=== PATIENT | female | born 1955 | race Caucasian/White ===

== ENCOUNTER 2018-02-09 19:13 | Inpatient (IN) | payer BC ==
[2018-02-09] MEDS ORDERED: ONDANSETRON HCL/PF 2 MG/ML VIAL IV ONE ×2 (19:39→22:40)
[2018-02-09] MEDS ORDERED: MORPHINE SULFATE 4 MG/ML SYRG IV ONE ×2 (19:40→22:40)
--- NOTE | 2018-02-09 19:46 | ERNOTE ---
<Randolph Cox - Last Filed: 02/09/18 19:40> Abdominal HPI - Narrative Date of Service: 02/09/18 - General Chief Complaint: Abdominal Pain Time Seen by Provider: 02/09/18 19:39 Source: patient, family Exam Limitations: no limitations - Immun/Allergies/Home Medications Immunizatons: IMMUNIZATION HX Immunizations Up to Date Yes History of Influenza Vaccine Yes Hx Pneumococcal Vaccination No Allergies/Adverse Reactions: Allergies No Known Allergies Allergy (Unverified 02/23/14 17:03) Home Medications: HOME MEDICATIONS metFORMIN HCL [Glucophage Xr] 1,000 mg PO BID 02/23/14 [Last Taken Unknown] Atorvastatin Calcium [Lipitor] 10 mg PO DAILY #0 tablet 03/01/14 [Last Taken Unknown] Lisinopril/Hydrochlorothiazide [Lisinopril-Hctz 20-25 mg Tab] 1 each PO DAILY # 0 tablet 03/01/14 [Last Taken Unknown] Multivitamin [Fzb-Rmknyj-Sonbf] 1 each PO DAILY #0 tablet 03/01/14 [Last Taken Unknown] Canagliflozin [Invokana] 100 mg PO DAILY 02/09/18 [Last Taken Unknown] Chlorthalidone [Hygroton] 25 mg PO DAILY 02/09/18 [Last Taken Unknown] Glimepiride [Glimepiride (Amaryl)] 8 mg PO DAILY 02/09/18 [Last Taken Unknown] Levothyroxine Sodium [Synthroid] 100 mcg PO DAILY 02/09/18 [Last Taken Unknown] Sitagliptin Phos/Metformin HCl [Janumet 50-1,000 mg Tablet] 1 each PO BID [Last Taken Unknown] - History of Present Illness Narrative: onset of abdominal pain at about noon today, symptoms similair to small bowel obstruction she has had in past Timing: constant, getting worse Quality: moderate, fullness, sharpness, stabbing Activities at Onset: none Modifying Factors - (Improves): Present: vomiting Modifying Factors - (Worsens): Present: eating Associated Symptoms: Present: nausea, vomiting, loss of appetite Prior Abdominal Problems: Present: similar symptoms Review of Systems - Narrative Narrative: unremarkable - Review of Systems Constitutional: Present: See HPI EYE: Present: see HPI ENT: Present: See HPI Respiratory: Present: See HPI Cardiology: Present: See HPI Gastrointestinal/Abdominal: Present: See HPI, nausea, vomiting, abdominal pain Genitourinary: Present: no symptoms reported Musculoskeletal: Present: no symptoms reported Skin: Present: no symptoms reported Neurological: Present: no symptoms reported, See HPI Endocrine: Present: no symptoms reported Hematologic/Lymphatic: Present: no symptoms reported Psych: Present: no symptoms reported All Other Systems: All systems neg except as marked - Narrative Narrative: unremarkable - Patient's Past Medical History Patient History - Medical: Diabetes Type 2, Other Patient History - Cardiac/Respiratory: Hypertension, Hyperlipidemia Patient History - Cancer: Thyroid Patient History - Surgical Procedures: Hysterectomy Patient History - Other: None LMP (females 10-50): Menopausal - Family History Family History:: no untoward family reactions to anesthesia, no familial bleeding tendencies, no family history of clotting disorders, no family history of premature - Social History Living Situations: spouse Abuse History: No History of abuse Psych History: No pertinent hx Smoking Status: Never smoker Have you smoked in the past 12 months: No Do you dip or chew tobacco: No Patient requests Smoking Cessation Consult: No Initiate information on Smoking Cessation: No Alcohol Use: occasionally Drug Use: none - Immunizations Immunizations Up to Date: Yes Hx Pneumococcal Vaccination: No History of Influenza Vaccine: Yes Physical Exam - Physical Exam General Appearance: Present: moderate distress Head Exam: Present: normal inspection, no evidence of injury Eye Exam: Normal inspection: bilateral, PERRL: bilateral, EOMI: bilateral Ears, Nose, Throat: Present: normal ENT inspection Neck: Present: normal inspection, nontender Respiratory: Present: no respiratory distress, normal breath sounds, no accessory muscle use, chest nontender, lungs clear Peripheral Pulses: N=norm/S=strong/W=weak/B=bound/A=absent: Carotid (R): Normal , Carotid (L): Normal, Radial (R): Normal, Radial (L): Normal, Femoral (R): Normal, Femoral (L): Normal, Dorsalis-pedis (R): Normal, Dorsalis-pedis (L): Normal Gastrointestinal/Abdominal: Present: tenderness, abnormal bowel sounds, distended, guarding Back Exam: Present: normal inspection, normal range of motion, no CVA tenderness , no vertebral tenderness Extremity Exam: Present: normal inspection Neurological Exam: Present: alert, oriented, normal mood/affect, no motor/ sensory deficits Skin Exam: Present: normal color, warm/dry Lymphatic Exam: Present: no adenopathy ED Progress - Vital Signs Vital Signs: Vital Signs 02/09/18 19:16 Temperature 36.3 C L Pulse Rate 64 Respiratory 16 Rate Blood Pressure 145/61 O2 Sat by Pulse 96 Oximetry - Progress/Reassessment Chief Complaint: Abdominal Pain - Transfer of Care Physician Sign Out: Randolph Cox Receiving Physician: Salomon Bonilla Departure Clinical Impression: Small bowel obstruction - Departure Disposition: Still a patient Condition: Fair <Salomon Bonilla - Last Filed: 02/10/18 02:10> Abdominal HPI - Immun/Allergies/Home Medications Immunizatons: IMMUNIZATION HX Immunizations Up to Date Yes History of Influenza Vaccine Yes Hx Pneumococcal Vaccination No ED Progress - Results and Orders Patient's Lab Results:: I have reviewed the patient's lab results. Results and Orders: Laboratory Tests 02/09/18 02/09/18 02/09/18 19:51 19:51 20:51 WBC 13.6 H Hgb 13.1 Hct 38.0 Plt Count 282 Sodium 140 Potassium 4.3 Chloride 102 Carbon Dioxide 26.6 Anion Gap 15.7 H BUN 28 H Creatinine 1.10 BUN/Creatinine Ratio 25.5 H Random Glucose 219 H Calcium 9.8 Total Bilirubin 0.5 AST 17 ALT 35 Alkaline Phosphatase 100 Total Protein 8.2 Albumin 4.2 Amylase 41 Lipase 134 Urine Color Yellow Urine Appearance Slightly cloudy Urine pH 5.5 Ur Specific [place] 1.025 Urine Protein Negative Urine Glucose (UA) >=1000 H Urine Ketones Negative Urine Blood Negative Urine Nitrate Negative Urine Bilirubin Negative Urine Urobilinogen Normal Ur Leukocyte Esterase Negative Urine RBC None seen Urine WBC 0-5 Ur Epithelial Cells 0-5 Urine Bacteria 1+ H Urine Yeast Moderate - 2+ H Urine Culture Comments No culture indicated - Vital Signs Patient's Vital Signs:: I have reviewed the patient's vital signs. Vital Signs: Vital Signs 02/09/18 19:16 Temperature 36.3 C L Pulse Rate 64 Respiratory 16 Rate Blood Pressure 145/61 O2 Sat by Pulse 96 Oximetry - CT/Ultrasound CT/Ultrasound Narrative: CT - Progress/Reassessment Progress Note-Subjective: 02/10/18 00:[address] Barnhart- General surgery and he agrees to see the patient in the morning, requests admission to medicine and consult him. Spoke with Vishaun Timmy [employer] hospitalist, she agrees with admit. - Transfer of Care Pending Results: CT/MRI results, Labs
[2018-02-09] MEDS ORDERED: MORPHINE SULFATE 4 MG/ML SYRG ONE ×2 (19:47→22:40)
[2018-02-09] MEDS ORDERED: ONDANSETRON HCL/PF 2 MG/ML VIAL ONE ×2 (19:47→22:40)
[2018-02-09 19:56] LABS: Hemoglobin 13.1 gm/dL (12.5-16.0); Mean Cell Volume 86.4 fl (78-100); Mean Corpuscular Hemoglobin 29.8 pg (27-31); Mean Corpuscular Hgb Conc 34.5 g/dl (32-36); Mean Platelet Volume 10.9 fl (6.0-9.5); Neutrophil # 9.6 K/mm3 (1.3-6.0); Neutrophil % 71.1 % (42-75.0); Platelet Count 282 K/mm3 (150-450); Red Cell Distribution Width 13.4 % (11.5-14.0); White Blood Count 13.6 K/mm3 (4.0-10.5)
[2018-02-09] MEDS: NORMAL SALINE 1,000 ML IV PRN (20:09)
[2018-02-09 20:10] LABS: Albumin * 4.2 gm/dl (3.4-5.0); Anion Gap 15.7 mmol/L (6.8-13.8); BUN/Creatinine Ratio 25.5 (9.0-21.6); Bilirubin, Total 0.5 mg/dL (0.0-1.1); Ca. Corrected For Albumin 9.3 mg/dL (8.4-10.2); Calcium * 9.8 mg/dL (7.9-10.9); Carbon Dioxide 26.6 mmol/L (24-32.6); Potassium 4.3 mmol/L (3.4-4.6); Total Protein 8.2 gm/dL (6.2-8.2)
[2018-02-09 20:57] LABS: Urine Bilirubin Negative (NEGATIVE); Urine Blood Negative /ul (NEGATIVE); Urine Ketone Negative (NEGATIVE); Urine Nitrite Negative (NEGATIVE); Urine Protein Negative (NEGATIVE); Urine Specific Gravity 1.025 SP.GR. (1.005-1.010); Urine Urobilinogen Normal (NORMAL); Urine pH 5.5 pH (5.0-7.0)
[2018-02-09 21:06] LABS: Urine Appearance Slightly Cloudy (CLEAR); Urine Color Yellow; Urine RBC None Seen /hpf (0-5); Urine WBC 0-5 /hpf (0-5)
[2018-02-09 21:07] LABS: Urine Bacteria 1+; Urine Yeast Moderate - 2+
[2018-02-09] MEDS ORDERED: DIATRIZOATE MEGLUMINE, SODIUM 30 ML BTL ONE (21:22)
[2018-02-09] MEDS ORDERED: DIATRIZOATE MEGLUMINE, SODIUM 30 ML BTL PO ONE (21:36)
[2018-02-10] MEDS ORDERED: TETRACAINE/BENZOCAINE/BUTAMBEN 20 SPRAY BTL TP ONE (01:29)
[2018-02-10] MEDS ORDERED: BENZOCAINE/MENTHOL 16 EACH BOX MM ONE (02:16)
[2018-02-10] MEDS ORDERED: BENZOCAINE/MENTHOL 16 EACH BOX MM PRN (02:19)
[2018-02-10] MEDS ORDERED: ONDANSETRON HCL/PF 2 MG/ML VIAL IV PRN (02:19)
[2018-02-10] MEDS ORDERED: MORPHINE SULFATE 2 MG/ML DISP.SYRIN IV PRN (02:19)
[2018-02-10] MEDS ORDERED: PANTOPRAZOLE SODIUM 40 MG in NORMAL SALINE 100 ML IV SCH (02:30)
[2018-02-10] MEDS: NORMAL SALINE 1,000 ML IV PRN (02:37)
--- NOTE | 2018-02-10 02:42 | HP ---
Chief Complaint - Chief Complaint Date of Service: 02/10/18 Time of Service: 01:39 Chief Complaint: abdominal pain, nausea and vomiting. History of Present Illness: 63 years old white female adm to the hospital with reports of nausea and intermittent abdominal pain that began approximately 11am yesterday. The abdominal pain was mainly around belt waistline, she had no appetite, passing flatus, one episode emesis while in ER and denies bowel movement. pt stated the s/s felt similar to bowel obstruction. She was diagnosed SBO 10yrs ago, that ultimately resulted in colon resection. PMH significant for diabetes, hypertension, sleep apnea and hypothyroidism. In ER Preliminary report X-Ray ABD : Dilation of small bowel loop measuring up to 3cm with scattered air fluid levels which is suggestive of partial small bowel obstruction vs ileus. CT ABD: Fatty liver infiltrate, gallbladder diffusely distended. Acute small bowel obstruction with distal transition point. No evidence for perforation. NGT inserted at Low intermittent suctioning. Plan of care discussed with pt and family they verbalized understanding and agrees. - Patient's Past Medical History Patient History - Medical: Diabetes Type 2, Hypothyroidism, Other - small bowel obstruction 10yrs ago Patient History - Cardiac/Respiratory: Hypertension, Hyperlipidemia, CPAP/BiPAP Home Use, Sleep Apnea, Other - morbid obesity Patient History - Cancer: Thyroid Patient History - Surgical Procedures: Colon Resection, Colonoscopy, Hysterectomy, Other - Tuba ligation,ventral hernia repair,umbilical hernia repair, hemithyroidectomy Patient History - Other: None LMP (females 10-50): Menopausal - Family History Family History:: no untoward family reactions to anesthesia, no familial bleeding tendencies, no family history of clotting disorders, no family history of premature - Family History Mother Family History - Medical: Family History - Cardiac/Respiratory: CVA/Stroke Father Family History - Medical: Family History - Cancer: Colon Brother Family History - Cardiac/Respiratory: CVA/Stroke Family History - Cancer: Bladder, Thyroid Sister Family History - Cancer: Bladder, Thyroid - Social History Living Situations: spouse Abuse History: No History of abuse Psych History: No pertinent hx Smoking Status: Never smoker Have you smoked in the past 12 months: No Do you dip or chew tobacco: No Patient requests Smoking Cessation Consult: No Initiate information on Smoking Cessation: No Alcohol Use: occasionally Drug Use: none - Immunizations Immunizations Up to Date: Yes Hx Pneumococcal Vaccination: No History of Influenza Vaccine: Yes Review Of Systems (GEN) - Review of Systems Generalized/Overall Review: Present: No Symptoms Reported EENTM: Present: No Symptoms Reported Respiratory: Present: No Symptoms Reported Cardiac: Present: No Symptoms Reported Abdominal: Present: Nausea, Vomiting, Abdominal Pain Genitourinary: Present: No Symptoms Reported Musculoskeletal: Present: No Symptoms Reported Neurological: Present: No Symptoms Reported Skin: Present: Dryness, Other - diabetic rash Allergies/Adverse Reactions: Allergies Allergy/AdvReac Type Severity Reaction Status Date / Time No Known Allergies Allergy Unverified 02/23/14 17:03 Home Medications: HOME MEDICATIONS Lisinopril/Hydrochlorothiazide [Lisinopril-Hctz 20-25 mg Tab] 1 each PO DAILY # 0 tablet 03/01/14 [Last Taken Unknown] Multivitamin [Fiz-Iscrxj-Ahgrw] 1 each PO DAILY #0 tablet 03/01/14 [Last Taken Unknown] Canagliflozin [Invokana] 100 mg PO DAILY 02/09/18 [Last Taken Unknown] Chlorthalidone [Hygroton] 25 mg PO DAILY 02/09/18 [Last Taken Unknown] Glimepiride [Glimepiride (Amaryl)] 8 mg PO DAILY 02/09/18 [Last Taken Unknown] Levothyroxine Sodium [Synthroid] 100 mcg PO DAILY 02/09/18 [Last Taken Unknown] Sitagliptin Phos/Metformin HCl [Janumet 50-1,000 mg Tablet] 1 each PO BID [Last Taken Unknown] Atorvastatin Calcium [Lipitor] 20 mg PO DAILY 02/10/18 [Last Taken Unknown] Cholecalciferol [Vitamin D] 5,000 unit PO DAILY 02/10/18 [Last Taken Unknown] Exam - Exam Vital Signs: Vital Signs - Last Taken Temp 36.3 C L 02/09/18 19:16 Pulse 72 02/10/18 00:58 Resp 20 02/10/18 00:58 BP 123/57 02/10/18 00:58 Pulse Ox 98 02/10/18 00:58 Constitutional: Present: Alert, Oriented x3, Cooperative, Morbidly obese ENT Exam: Present: hearing grossly normal Eye Exam: bilateral eye: normal inspection Neck: Present: full range of motion Back Exam: Present: normal inspection Breasts: Present: Exam deferred Respiratory: Present: chest non-tender, lungs clear, normal breath sounds, no respiratory distress Cardiovascular/Chest: Present: normal peripheral pulses, regular rate, rhythm, no chest tenderness, no edema Peripheral Pulses: dorsalis-pedis (R): 2+, dorsalis-pedis (L): 2+ Abdomen: Present: soft, no rebound tenderness, obese, distended, hypoactive Extremity: Present: normal range of motion, non-tender, normal inspection, no pedal edema, no calf tenderness Skin Exam: Present: skin rash - diabetic dermopathy on bilateral pretibial area Lymphatic: Present: no adenopathy Neurologic: Present: alert, normal mood/affect, oriented x 3 Appearance: Present: appropriate appearance, appropriate insight Eye contact: Present: cooperative, good eye contact Thoughts: Present: normal thought pattern, no apparent hallucination Diagnostic Studies: Laboratory Results WBC 13.6 K/mm3 (4.0-10.5) H 02/09/18 19:51 RBC 4.40 M/mm3 (4.2-5.4) 02/09/18 19:51 Hgb 13.1 gm/dL (12.5-16.0) 02/09/18 19:51 Hct 38.0 % (37.0-47.0) 02/09/18 19:51 MCV 86.4 fl (78-100) 02/09/18 19:51 MCH 29.8 pg (27-31) 02/09/18 19:51 MCHC 34.5 g/dl (32-36) 02/09/18 19:51 RDW 13.4 % (11.5-14.0) 02/09/18 19:51 Plt Count 282 K/mm3 (150-450) 02/09/18 19:51 MPV 10.9 fl (6.0-9.5) H 02/09/18 19:51 Immature Gran % (Auto) 0.90 % (0.001-0.429) H 02/09/18 19:51 Immature Gran # (Auto) 0.12 K/mm3 (0.000-0.0310) H 02/09/18 19:51 Neutrophils % 71.1 % (42-75.0) 02/09/18 19:51 Lymphocytes % 22.4 % (20-51) 02/09/18 19:51 Monocytes % 4.1 % (0.0-9) 02/09/18 19:51 Eosinophils % 1.0 % (0.0-3.0) 02/09/18 19:51 Basophils % 0.5 % (0.0-1.0) 02/09/18 19:51 Nucleated RBC % 0.0 k/mm3 (0-1) 02/09/18 19:51 Neutrophils # 9.6 K/mm3 (1.3-6.0) H 02/09/18 19:51 Lymphocytes # 3.04 k/mm3 (1.5-3.5) 02/09/18 19:51 Monocytes # 0.6 k/mm3 (0.0-1.0) 02/09/18 19:51 Eosinophils # 0.1 k/mm3 (0.0-0.7) 02/09/18 19:51 Absolute Basophils 0.1 k/mm3 (0.0-0.1) 02/09/18 19:51 Sodium 140 mmol/L (132-142) 02/09/18 19:51 Plasma Sodium 142 mmol/L (130-142) 02/09/18 19:51 Potassium 4.3 mmol/L (3.4-4.6) 02/09/18 19:51 Chloride 102 mmol/L (97-106) 02/09/18 19:51 Carbon Dioxide 26.6 mmol/L (24-32.6) 02/09/18 19:51 Anion Gap 15.7 mmol/L (6.8-13.8) H 02/09/18 19:51 BUN 28 mg/dL (3-23) H 02/09/18 19:51 Creatinine 1.10 mg/dL (0.4-1.4) 02/09/18 19:51 Est GFR (Non-Af Amer) 53 mL/min (60-130) L 02/09/18 19:51 BUN/Creatinine Ratio 25.5 (9.0-21.6) H 02/09/18 19:51 Random Glucose 219 mg/dL (70-110) H 02/09/18 19:51 Calcium 9.8 mg/dL (7.9-10.9) 02/09/18 19:51 Calcium Adj for Albumin 9.3 mg/dL (8.4-10.2) 02/09/18 19:51 Total Bilirubin 0.5 mg/dL (0.0-1.1) 02/09/18 19:51 AST 17 U/L (0-48) 02/09/18 19:51 ALT 35 U/L (19-67) 02/09/18 19:51 Alkaline Phosphatase 100 U/L (50-170) 02/09/18 19:51 Total Protein 8.2 gm/dL (6.2-8.2) 02/09/18 19:51 Albumin 4.2 gm/dl (3.4-5.0) 02/09/18 19:51 Amylase 41 U/L (25-115) 02/09/18 19:51 Lipase 134 U/L (73-393) 02/09/18 19:51 Urine Color Yellow 02/09/18 20:51 Urine Appearance Slightly cloudy (CLEAR) 02/09/18 20:51 Urine pH 5.5 pH (5.0-7.0) 02/09/18 20:51 Ur Specific [place] 1.025 SP.GR. (1.005-1.010) 02/09/18 20:51 Urine Protein Negative mg/dL (NEGATIVE) 02/09/18 20:51 Urine Glucose (UA) >=1000 mg/dL (NEGATIVE) H 02/09/18 20:51 Urine Ketones Negative mg/dL (NEGATIVE) 02/09/18 20:51 Urine Blood Negative /ul (NEGATIVE) 02/09/18 20:51 Urine Nitrate Negative (NEGATIVE) 02/09/18 20:51 Urine Bilirubin Negative mg/dl (NEGATIVE) 02/09/18 20:51 Urine Urobilinogen Normal EU/dl (NORMAL) 02/09/18 20:51 Ur Leukocyte Esterase Negative /ul (NEGATIVE) 02/09/18 20:51 Urine RBC None seen /hpf (0-5) 02/09/18 20:51 Urine WBC 0-5 /hpf (0-5) 02/09/18 20:51 Ur Epithelial Cells 0-5 /hpf (0-5) 02/09/18 20:51 Urine Bacteria 1+ (NONE) H 02/09/18 20:51 Urine Yeast Moderate - 2+ (NONE) H 02/09/18 20:51 Urine Culture Comments No culture indicated 02/09/18 20:51 Preliminary report X-Ray ABD: Dilation of small bowel loop measuring up to 3cm with scattered air fluid levels which is suggestive of partial small bowel obstruction vs ileus. CT ABD: Fatty liver infiltrate, gallbladder diffusely distended. Acute small bowel obstruction with distal transition point. No evidence for perforation. Assessment/Plan - Narrative Narrative: Small bowel obstruction Seen On X-ray ABD:Preliminary report X-Ray ABD:Dilation of small bowel loop measuring up to 3cm with scattered air fluid levels which is suggestive of partial small bowel obstruction vs ileus. CT ABD: Fatty liver infiltrate, gallbladder diffusely distended. Acute small bowel obstruction with distal transition point. No evidence for perforation. CXR pending reports Keep NPO, with NGT low intermittent suction Dextrose 5 0.9 20meq LCK 125ml/hr Protonix IVP Dr Mercer consulted Sleep apnea pt refuses cpap while NGT in use Hypertension- stable continue to monitor vital signs Diabetes On adm BG 219 Hold oral hypoglycemic med, pt had CT with contrast Accu-check and continue with IVF Code status: Full GI ppx: protonix VTE ppx: SCD and ambulate Time 40 minutes and case discussed with pt and - Assessment/Plan (1) Small bowel obstruction Problem: Acute (2) Diabetes Problem: Acute (3) Hyperlipidemia Problem: Chronic (4) Hypothyroidism Problem: Chronic (5) Sleep apnea Problem: Chronic (6) Morbid obesity Problem: Chronic
[2018-02-10] MEDS ORDERED: POTASSIUM CHLORIDE 20 MEQ in DEXTROSE 5%-NORMAL SALINE 990 ML IV SCH (03:00)
[2018-02-10 06:40] LABS: Albumin * 3.2 gm/dl (3.4-5.0); Anion Gap 14.4 mmol/L (6.8-13.8); BUN/Creatinine Ratio 23.5 (9.0-21.6); Bilirubin, Total 0.5 mg/dL (0.0-1.1); Ca. Corrected For Albumin 8.4 mg/dL (8.4-10.2); Calcium * 8.1 mg/dL (7.9-10.9); Carbon Dioxide 24.3 mmol/L (24-32.6); Potassium 4.7 mmol/L (3.4-4.6); Total Protein 6.6 gm/dL (6.2-8.2)
[2018-02-10] MEDS: DEXTROSE 5%-NORMAL SALINE 1,000 ML IV PRN ×3 (10:07→23:39)
[2018-02-10] MEDS: INSULIN LISPRO 100 UNITS/ML VIAL SC SCH ×3 (10:44→22:01)
--- NOTE | 2018-02-10 13:02 | CONS ---
[facility] - General Date of Service: 02/10/18 Narrative: Pt was admitted in the night with a partial small bowel obstruction. This has happened before and resolved by conservative means under the care of Dr. Falk. She has a significant surgical history of the abdomen. CT has shown a transition point in the RLQ in the iliac fossa near the iliac artery. It also shows recurrent ventral hernias of the upper abdomen despite having mesh implantation from flank to flank. Today she is passing flatus. No BM. Her pain is now gone. Source: patient, RN/MD, old records Exam Limitations: no limitations - History of Present Illness Allergies/Adverse Reactions: Allergies No Known Allergies Allergy (Verified 02/10/18 11:23) Home Medications: Home Medications Medication Instructions Recorded Last Taken Canagliflozin [Invokana] 100 mg PO DAILY 02/09/18 Unknown Chlorthalidone [Hygroton] 25 mg PO DAILY 02/09/18 Unknown Glimepiride [Glimepiride (Amaryl)] 8 mg PO DAILY 02/09/18 Unknown Levothyroxine Sodium [Synthroid] 100 mcg PO DAILY 02/09/18 Unknown Sitagliptin Phos/Metformin HCl 1 each PO BID 02/09/18 Unknown [Janumet 50-1,000 mg Tablet] Atorvastatin Calcium [Lipitor] 20 mg PO DAILY 02/10/18 Unknown Cholecalciferol [Vitamin D] 5,000 unit PO DAILY 02/10/18 Unknown - Patient's Past Medical History Patient History - Medical: Diabetes Type 2, Hypothyroidism, Other - small bowel obstruction 10yrs ago Patient History - Cardiac/Respiratory: Hypertension, Hyperlipidemia, CPAP/BiPAP Home Use, Sleep Apnea, Other - morbid obesity Patient History - Cancer: Thyroid Patient History - Surgical Procedures: Colon Resection, Colonoscopy, Hysterectomy, Other - Tuba ligation,ventral hernia repair,umbilical hernia repair, hemithyroidectomy Patient History - Other: None LMP (females 10-50): Menopausal - Family History Family History:: no untoward family reactions to anesthesia, no familial bleeding tendencies, no family history of clotting disorders, no family history of premature - Family History Mother Family History - Medical: Family History - Cardiac/Respiratory: CVA/Stroke Father Family History - Medical: Family History - Cancer: Colon Brother Family History - Cardiac/Respiratory: CVA/Stroke Family History - Cancer: Bladder, Thyroid Sister Family History - Cancer: Bladder, Thyroid - Social History Living Situations: spouse Abuse History: No History of abuse Psych History: No pertinent hx Smoking Status: Never smoker Have you smoked in the past 12 months: No Do you dip or chew tobacco: No Patient requests Smoking Cessation Consult: No Initiate information on Smoking Cessation: No Alcohol Use: occasionally Drug Use: none - Immunizations Immunizations Up to Date: Yes Hx Pneumococcal Vaccination: No History of Influenza Vaccine: Yes Procedures COLONOSCOPY (03/01/14) Medications - Medications Current Medications: Current Medications Dextrose/Sodium Chloride (Dextrose 5%-0.9% Ns) 1,000 mls @ 150 mls/hr IV .Q6H40M PRN PRN Reason: HYDRATION Stop: 03/12/18 09:46 Last Admin: 02/10/18 10:07 Dose: 150 mls/hr Insulin Human Lispro (Humalog) 0 - 12 units SC Q6H KAREN PRN Reason: Protocol Stop: 03/12/18 10:01 Last Admin: 02/10/18 10:44 Dose: Not Given Morphine Sulfate (Morphine Sulfate) 2 mg IV Q6H PRN PRN Reason: Pain Stop: 03/12/18 02:20 Last Admin: 02/10/18 02:38 Dose: 2 mg Ondansetron HCl (Zofran) 4 mg IV Q6H PRN PRN Reason: Nausea And Vomiting Stop: 03/12/18 02:20 Last Admin: 02/10/18 02:38 Dose: 4 mg Review of Systems - Review of Systems Abdominal: Present: Vomiting, Abdominal Pain Misc: All systems neg except as marked Physical Examination - Exam Vital Signs: Vital Signs - Last Taken Temp 36.4 C L 02/10/18 10:30 Pulse 61 02/10/18 10:30 Resp 16 02/10/18 10:30 BP 109/55 02/10/18 10:30 Pulse Ox 98 02/10/18 10:30 O2 Oxygen Delivery Method Room Air Constitutional: Present: Alert, Oriented x3, Cooperative, Well developed, Well nourished, No distress, Morbidly obese ENT Exam: Present: normal ENT inspection, other - NG in place with bilious succus entericus Eye Exam: bilateral eye: normal inspection Neck: Present: normal inspection Respiratory: Present: normal breath sounds, no respiratory distress, no accessory muscle use Cardiovascular/Chest: Present: regular rate, rhythm, no murmur Abdomen: Present: Normal bowel sounds, soft, nontender, nondistended Skin Exam: Present: normal color, warm/dry Neurologic: Present: no motor/sensory deficits Eye contact: Present: cooperative, good eye contact Thoughts: Present: normal thought pattern - Results and Findings: Lab/Microbiology results last 24 hrs: Abnormal/Pending Laboratory Last 24 HRS 02/10/18 06:14 Potassium 4.7 H Anion Gap 14.4 H BUN 35 H Creatinine 1.49 H Est GFR (Non-Af Amer) 37 L D BUN/Creatinine Ratio 23.5 H Random Glucose 196 H Albumin 3.2 L - Assessments/Findings (1) Partial small bowel obstruction Diagnosis(s): This has resolved by conservative means in the past. She states this episode is not nearly as severe as the previous. Will do gut rest for the time being. Problem: Acute
--- NOTE | 2018-02-10 16:07 | PN ---
Subjective - Date and Time Seen Date: 02/11/18 Time: 11:53 Subjective Narrative: Does not feel as good as yesterday. NG tube came out accidentally last night and was replaced. Has some pain at the back of her throat. No abdominal discomfort. Passing gas. Ambulating several times a day. Objective - Review of Systems Cardiac: Denies: Chest Pain, Edema Abdominal: Denies: Nausea, Vomiting - Vitals Vitals: Vital Signs 02/11/18 11:52 Temperature 36.9 C Pulse Rate 66 Resp.rate 18 Blood Pressure 132/49 O2 Sat 96 Oxygen Delivery Room Air - Abnormal Lab Findings Abnormal Lab Findings: Laboratory Tests 02/09/18 02/11/18 19:51 05:47 WBC 13.6 H 7.0 D Hgb 13.1 10.9 L Hct 38.0 33.4 L Plt Count 282 222 02/10/18 02/11/18 06:14 05:47 Plasma Sodium 142 146 H Potassium 4.7 H 3.8 Chloride 106 109 H Carbon Dioxide 24.3 27.7 BUN 35 H 19 Creatinine 1.49 H 0.88 Est GFR (Non-Af Amer) 37 L D 69 D Random Glucose 196 H 190 H Calcium Adj for Albumin 8.4 8.7 Total Bilirubin 0.5 0.5 AST 11 12 ALT 26 23 Alkaline Phosphatase 79 76 Total Protein 6.6 6.5 Albumin 3.2 L 3.1 L - Exam Constitutional: Present: Alert, Oriented x3, Cooperative, No distress - with NG tube., Middle aged, Morbidly obese Neck: Present: normal inspection, trachea midline Respiratory: Present: lungs clear, normal breath sounds, no accessory muscle use Cardiovascular/Chest: Present: regular rate, rhythm. Absent: tachycardia Abdomen: Present: soft, nontender, obese - ventral hernia present. Diminished bowel sounds today.. Absent: guarding, rigidity Extremity: Present: normal inspection, no pedal edema Skin Exam: Present: normal color, warm/dry Assessment/Plan Plan Narrative: 1. PARTIAL SMALL BOWEL OBSTRUCTION: Patient on IV fluids and an intermittent suction through NG tube. Obtain abdomen flat and upright: shows contrast material in the colon. 2. HYPERNATREMIA and HYPERCHLOREMIA: DC D5NS. Start D5W with 40 of K at 150 mL an hour. Check electrolytes in a.m. 3. T2 DM: Blood glucose screening every 6 hours. Patient on a low-dose sliding scale. 4. HYPERTENSION: Patient currently not requiring any medications. 5. DVT prophylaxis: SCD. CODE STATUS: Full code 6. Dr. Day will be covering me from 02/11/18 till 02/15.
[2018-02-11] MEDS: PANTOPRAZOLE SODIUM 40 MG in NORMAL SALINE 50 ML IV SCH (02:33)
[2018-02-11] MEDS: INSULIN LISPRO 100 UNITS/ML VIAL SC SCH ×4 (04:38→22:19)
[2018-02-11 05:59] LABS: Hematocrit 33.4 % (37.0-47.0); Hemoglobin 10.9 gm/dL (12.5-16.0); Mean Cell Volume 89.8 fl (78-100); Mean Corpuscular Hemoglobin 29.3 pg (27-31); Mean Corpuscular Hgb Conc 32.6 g/dl (32-36); Mean Platelet Volume 10.9 fl (6.0-9.5); Neutrophil # 3.8 K/mm3 (1.3-6.0); Neutrophil % 54.8 % (42-75.0); Platelet Count 222 K/mm3 (150-450); Red Blood Count 3.72 M/mm3 (4.2-5.4); Red Cell Distribution Width 13.6 % (11.5-14.0)
[2018-02-11 06:12] LABS: Albumin * 3.1 gm/dl (3.4-5.0); Anion Gap 12.1 mmol/L (6.8-13.8); BUN/Creatinine Ratio 21.6 (9.0-21.6); Bilirubin, Total 0.5 mg/dL (0.0-1.1); Ca. Corrected For Albumin 8.7 mg/dL (8.4-10.2); Calcium * 8.3 mg/dL (7.9-10.9); Carbon Dioxide 27.7 mmol/L (24-32.6); Potassium 3.8 mmol/L (3.4-4.6); Total Protein 6.5 gm/dL (6.2-8.2)
[2018-02-11] MEDS: DEXTROSE 5%-NORMAL SALINE 1,000 ML IV PRN (06:38)
[2018-02-11] MEDS ORDERED: POTASSIUM CHLORIDE 40 MEQ in DEXTROSE 5 % IN WATER 1,000 ML IV SCH ×2 (10:00)
[2018-02-11] MEDS: POTASSIUM CHLORIDE 40 MEQ in DEXTROSE 5 % IN WATER 1,000 ML IV SCH ×4 (11:16→17:58)
[2018-02-12] MEDS: POTASSIUM CHLORIDE 40 MEQ in DEXTROSE 5 % IN WATER 1,000 ML IV SCH ×8 (00:33→23:17)
[2018-02-12] MEDS: PANTOPRAZOLE SODIUM 40 MG in NORMAL SALINE 50 ML IV SCH (02:45)
[2018-02-12] MEDS: INSULIN LISPRO 100 UNITS/ML VIAL SC SCH ×5 (04:47→23:16)
--- NOTE | 2018-02-12 05:20 | PN ---
Subjective - Date and Time Seen Date: 02/12/18 Time: 05:06 Subjective Narrative: Patient seen today in bed without discomfort. she denies abdominal pain, fever, cough, nausea or vomiting. pt stated she is having alot of flatus while walking , abdomen making a lot of noise and she currently feels hungry. Pt been tolerating CLD and anticipating having diet advanced. She had some heart burn overnight that improved after protonix. Objective - Review of Systems Generalized/Overall Review: Reports: No Symptoms Reported EENTM: Reports: No Symptoms Reported Respiratory: Reports: No Symptoms Reported Cardiac: Reports: No Symptoms Reported Abdominal: Reports: No Symptoms Reported Genitourinary Symptoms: Reports: No Symptoms Reported Musculoskeletal Complaints: Reports: No Symptoms Reported Neurological: Reports: No Symptoms Reported Skin: Reports: No Symptoms Reported Endocrine: Reports: No Symptoms Reported - Vitals Vitals: Last Vital Signs Selected Entries 02/12/18 01:35 Temperature 36.3 C L Pulse Rate 77 Blood Pressure 142/65 Blood Pressure 90 Mean O2 Sat by Pulse 96 Oximetry - Abnormal Lab Findings Abnormal Lab Findings: Abnormal Lab Results 02/11/18 02/11/18 Range/Units 05:47 05:47 RBC 3.72 L (4.2-5.4) M/mm3 Hgb 10.9 L (12.5-16.0) gm/dL Hct 33.4 L (37.0-47.0) % MPV 10.9 H (6.0-9.5) fl Sodium 145 H (132-142) mmol/L Plasma Sodium 146 H (130-142) mmol/L Chloride 109 H (97-106) mmol/L Random Glucose 190 H (70-110) mg/dL Albumin 3.1 L (3.4-5.0) gm/dl - Exam Constitutional: Present: Alert, Oriented x3, Cooperative, No distress, Middle aged, Morbidly obese ENT Exam: Present: hearing grossly normal Neck: Present: full range of motion Breasts: Present: Exam deferred Respiratory: Present: chest non-tender, lungs clear, normal breath sounds, no respiratory distress Cardiovascular/Chest: Present: normal peripheral pulses, regular rate, rhythm, no chest tenderness, no edema, no gallop Abdomen: Present: Normal bowel sounds, soft, nontender, nondistended, no rebound tenderness /Rectal: Present: Exam deferred Extremity: Present: normal range of motion, non-tender, normal inspection, no pedal edema, no calf tenderness Skin Exam: Present: other - diabetic dermopathy bilaterally on [place] Lymphatic: Present: no adenopathy Neurologic: Present: alert, normal mood/affect, oriented x 3 Appearance: Present: appropriate appearance, appropriate insight Eye contact: Present: cooperative, good eye contact Thoughts: Present: normal thought pattern Assessment/Plan Plan Narrative: PARTIAL SMALL BOWEL OBSTRUCTION: Continue with IVF and intermittent suctioning Obtain abdomen flat and upright: 02/11/18 X-Ray ABD: shows contrast material in the colon.No definite intestinal obstruction. Pt tolerating clear liquid diet Dr Blunt following HYPERNATREMIA and HYPERCHLOREMIA: Na+ 147 and Cl- 109 Continue with D5W with 40 of K at 150 mL an hour. Monitoring CMP in the morning T2 DM: Blood glucose screening every 6 hours. Patient on a low-dose sliding scale. Blood glucose still within range, oral hypoglycemics were held due to NPO and contrast use. Repeated Bun/Cre improved HYPERTENSION: Patient blood pressure gradually increasing resume home HCTZ SLEEP APNEA pt refused cpap DVT prophylaxis:SCD. GI ppx: protonix CODE STATUS: Full code Time 20 minutes and case discussed with Dr Day - Problems/Diagnosis (1) Small bowel obstruction Problem: Acute (2) Diabetes Problem: Chronic (3) Hyperlipidemia Problem: Chronic (4) Hypothyroidism Problem: Chronic (5) Sleep apnea Problem: Chronic (6) Morbid obesity Problem: Chronic
[2018-02-12 06:03] LABS: Albumin * 3.2 gm/dl (3.4-5.0); Anion Gap 13.5 mmol/L (6.8-13.8); BUN/Creatinine Ratio 14.1 (9.0-21.6); Bilirubin, Total 0.8 mg/dL (0.0-1.1); Ca. Corrected For Albumin 8.8 mg/dL (8.4-10.2); Calcium * 8.5 mg/dL (7.9-10.9); Carbon Dioxide 26.7 mmol/L (24-32.6); Magnesium 1.9 mg/dL (1.2-2.8); Phosphorus 2.5 mg/dL (2.2-4.2); Potassium 4.2 mmol/L (3.4-4.6); Total Protein 6.6 gm/dL (6.2-8.2)
[2018-02-12] MEDS ORDERED: NON-FORMULARY 1 DOSE DOSE (Lisinopril/Hydrochlorothiazide [Lisinopril-Hctz 20-25 Mg Tab] 1 PO SCH (09:00)
[2018-02-12] MEDS: LISINOPRIL 20 MG TABLET PO SCH (09:54)
[2018-02-12] MEDS: HYDROCHLOROTHIAZIDE 25 MG TABLET PO SCH (09:55)
[2018-02-12] MEDS: MULTIVITAMINS 1 CAP CAPSULE PO SCH (09:55)
[2018-02-12] MEDS: LEVOTHYROXINE SODIUM 100 MCG TABLET PO SCH (09:55)
[2018-02-12] MEDS ORDERED: KETOROLAC TROMETHAMINE 30 MG/ML VIAL IV PRN (11:40)
[2018-02-12] MEDS ORDERED: ATORVASTATIN CALCIUM 40 MG TABLET PO SCH (21:00)
[2018-02-12] MEDS ORDERED: ROSUVASTATIN CALCIUM 10 MG TABLET PO SCH (21:00)
--- NOTE | 2018-02-13 06:28 | DS ---
(1) Small bowel obstruction Problem: Resolved (2) Diabetes Problem: Chronic (3) Hyperlipidemia Problem: Chronic (4) Hypothyroidism Problem: Chronic (5) Sleep apnea Problem: Chronic (6) Morbid obesity Problem: Chronic Description of Stay: Date of adm 02/10/18 Date of discharge 02/13/18 Problem base Hospital course 63 years old white female adm to the hospital with reports of nausea and intermittent abdominal pain that began approximately 11am 02/09/18 The abdominal pain was mainly around belt waistline, she had no appetite, passing flatus, one episode emesis while in ER and denies bowel movement. pt stated the s/s felt similar to bowel obstruction. She was diagnosed SBO 10yrs ago, that ultimately resulted in colon resection. PMH significant for diabetes, hypertension, sleep apnea and hypothyroidism. During this adm pt had bowel rest , Had NGT insertion to LIS. She remains medically stable and obstruction gradually resolved. pt is medically appropriate for discharge home. Follow up appt: plans for follow up with Dr Gonzalez in 3-7 days. call for appt. Diagnostic test X-Ray ABD: Dilation of small bowel loop measuring up to 3cm with scattered air fluid levels which is suggestive of partial small bowel obstruction vs ileus. CT ABD: Fatty liver infiltrate, gallbladder diffusely distended. Acute small bowel obstruction with distal transition point. No evidence for perforation. 02/12/18 Repeated X-Ray ABD: Non-obstructed nonspecific bowel gas pattern. New/ Change of medications: None Discharge home medications: Complete Home Medication List: Lisinopril/Hydrochlorothiazide [Lisinopril-Hctz 20-25 mg Tab] 1 each PO DAILY # 0 tablet 02/14/18 Multivitamin [Ibc-Spyify-Folpo] 1 each PO DAILY #0 tablet 02/14/18 Canagliflozin [Invokana] 100 mg PO DAILY 02/14/18 Chlorthalidone [Hygroton] 25 mg PO DAILY 02/14/18 Glimepiride [Amaryl] 8 mg PO DAILY 02/14/18 Levothyroxine Sodium [Synthroid] 100 mcg PO DAILY 02/14/18 Sitagliptin Phos/Metformin HCl [Janumet 50-1,000 mg Tablet] 1 each PO BID Atorvastatin Calcium [Lipitor] 20 mg PO DAILY 02/14/18 Cholecalciferol [Vitamin D] 5,000 unit PO DAILY 02/14/18 Procedures Performed: none Results and Findings: Laboratory Tests 02/09/18 02/10/18 02/11/18 02/12/18 19:51 06:14 05:47 05:27 WBC 13.6 H 7.0 D RBC 4.40 3.72 L Hgb 13.1 10.9 L Hct 38.0 33.4 L Plt Count 282 222 Sodium 140 139 Plasma Sodium 142 141 Potassium 4.7 H 4.2 Anion Gap 14.4 H 13.5 BUN 35 H 12 Creatinine 1.49 H 0.85 Est GFR (Non-Af Amer) 37 L D 72 BUN/Creatinine Ratio 23.5 H 14.1 Discharge Location: Home Disposition: Home self-care Condition: Fair Discharge Activity: Activity as tolerated Discharge Diet: Consistent carbs Referrals: Graeme Gonzalez MD [Primary Care Provider] - Problem Oriented Discharge Instructions to Patient/Family: Small Bowel Obstruction, [id number] Complete Home Medications List: Complete Home Medication List: Lisinopril/Hydrochlorothiazide [Lisinopril-Hctz 20-25 mg Tab] 1 each PO DAILY # 0 tablet 03/01/14 Multivitamin [Qmf-Fivjzl-Djhgp] 1 each PO DAILY #0 tablet 03/01/14 Canagliflozin [Invokana] 100 mg PO DAILY 02/09/18 Chlorthalidone [Hygroton] 25 mg PO DAILY 02/09/18 Glimepiride [Amaryl] 8 mg PO DAILY 02/09/18 Levothyroxine Sodium [Synthroid] 100 mcg PO DAILY 02/09/18 Sitagliptin Phos/Metformin HCl [Janumet 50-1,000 mg Tablet] 1 each PO BID Atorvastatin Calcium [Lipitor] 20 mg PO DAILY 02/10/18 Cholecalciferol [Vitamin D] 5,000 unit PO DAILY 02/10/18
[2018-02-13] MEDS: INSULIN LISPRO 100 UNITS/ML VIAL SC SCH (06:49)
[2018-02-13] MEDS ORDERED: PANTOPRAZOLE SODIUM 40 MG TABLET.EC PO SCH (07:00)
[2018-02-13] MEDS: MULTIVITAMINS 1 CAP CAPSULE PO SCH (08:57)
[2018-02-13] MEDS: HYDROCHLOROTHIAZIDE 25 MG TABLET PO SCH (08:57)
[2018-02-13] MEDS: LEVOTHYROXINE SODIUM 100 MCG TABLET PO SCH (08:57)
[2018-02-13] MEDS: LISINOPRIL 20 MG TABLET PO SCH (08:58)
[2018-02-13] MEDS ORDERED: INSULIN LISPRO 100 UNITS/ML VIAL SC SCH (12:00)
[2018-02-13 12:07] VITALS: BP 118/45
[2018-02-13] MEDS ORDERED: METFORMIN PO SCH (21:00)
[2018-02-13] MEDS ORDERED: [UNRECOGNIZED DRUG - OTHER] PO SCH (21:00)
[2018-02-13] MEDS ORDERED: SITAGLIPTIN PO SCH (21:00)
[2018-02-14] MEDS ORDERED: GLIMEPIRIDE 4 MG TABLET PO SCH (08:00)
[2018-02-14] MEDS ORDERED: CHOLECALCIFEROL 5,000 UNIT TABLET PO SCH (09:00)
[2018-02-14] MEDS ORDERED: CHLORTHALIDONE 25 MG TABLET PO SCH (09:00)
[2018-02-14] MEDS ORDERED: CANAGLIFLOZIN 100 MG TABLET PO SCH (09:00)
== END 2018-02-13 12:31 | disposition home or self-care (01) | DRG 389 ==
LOC: ER 19:13 → MS 02-10 00:54
PROVIDERS: ADMIT Nurse Practitioner; ATTEND Internal Medicine
DX: E03.9 Hypothyroidism, unspecified; E11.9 Type 2 diabetes mellitus without complications; I10 Essential (primary) hypertension; E87.0 Hyperosmolality and hypernatremia; E78.5 Hyperlipidemia, unspecified; Z79.84 Long term (current) use of oral hypoglycemic drugs; K56.600 Partial intestinal obstruction, unspecified as to cause
CPT/HCPCS: 36415; 71045; 74019; 74177; 80053; 81001; 82150; 83690; 83735; 84100; 85025; 94660; 96374; 96375; 99285; J2405